=== PATIENT | male | born 2000 | race Two or more races ===

== ENCOUNTER 2021-04-12 08:32 | Emergency (ER) | payer MEDICAID ==
[~2021-04-12] VITALS: Ht 182.9 cm; Wt 86.2 kg
--- NOTE | 2021-04-12 08:50 | NUR ---
Called [employer] non-emergency number and reported the incident to [phone]. She stated since the pt states [employer] were already on scene, they will not need to come out to speak with him.
[2021-04-12] MEDS ORDERED: IBUPROFEN 600 MG TABLET PO ONE (09:00)
--- NOTE | 2021-04-12 09:01 | NUR ---
PT IS IN ROOM #2B. DR CLINTON EVALUATED THE PT.
[2021-04-12] MEDS ORDERED: IBUP-1955 PO (09:02)
[2021-04-12] MEDS ORDERED: BACL10TA PO (09:02)
[2021-04-12] MEDS ORDERED: IBUPROFEN 600 MG TABLET ONE (09:11)
--- NOTE | 2021-04-12 09:16 | NUR ---
PT WAS D/C'd TO HOME. D/C INSTRUCTIONS GIVEN TO THE PT BY DR CLINTON.
[2021-04-12 09:17] VITALS: BP 139/81
== END 2021-04-12 09:25 | disposition home or self-care (01) ==
LOC: ER 08:32
DX: S00.12XA Contusion of left eyelid and periocular area, initial encounter (principal); S00.83XA Contusion of other part of head, initial encounter; Y04.0XXA Assault by unarmed brawl or fight, initial encounter; Y92.89 Other specified places as the place of occurrence of the external cause
CPT/HCPCS: A4663